=== PATIENT | female | born 1950 | race Caucasian/White ===

== ENCOUNTER → 2016-10-04 | Outpatient (CLI) | payer OTHER ==
--- NOTE | ~2016-10-04 | CT138 ---
[facility] A Service of [facility] RADIOLOGY TEXT RESULTS PATIENT: PAXTON RENTERIA LOCATION: [facility] : 52 UNIT #: [id number] AGE: [address]: Jada Rachel MD SEX: F ORDER DR: [id number] [facility]. [place], [place] [address] [id number] O MR#: [id number] Acc #: [id number] NAME: PAXTON RENTERIA : 1950 SEX: F STUDY DATE/TIME: 10/04/2016 10:22 UNIT: [facility] ROOM: STUDY DESCRIPTION: CT Lung screening initial Attending Physician: Jada Rachel M.D. Referring Physician: Jada Rachel M.D. Ordering Physician: Jada Rachel M.D. Primary Care Physician: Jada Rachel M.D. MEDICAL IMAGING REPORT This report is preliminary unless electronic signature is present EXAM CT chest without contrast, lung cancer screening, 10/04/2016 at 10:22 hours HISTORY 65-year-old current smoker with 40 pack-year history of cigarette smoking for baseline lung cancer screening exam. Patient has history of breast carcinoma in 2013 with chemo and radiation therapy. No current chest complaints. COMPARISON None TECHNIQUE Helical low dose CT images were obtained from the thoracic inlet through the adrenal glands. Sagittal and coronal reconstructions were performed. Total exam DLP 127 mGy-cm. This CT exam was performed with one or more of the following radiation dose reduction techniques: automatic exposure control, adjustment of mA and/or kV according to patient size, and iterative reconstruction. This exam was performed in a facility that meets the criteria for the LD CT screening program. Data regarding this exam was submitted to an approved registry. The order for this exam indicates that it came as a result of a lung cancer screening counseling and shared decision-making visit that included all of the elements required of such a visit. The radiologist interpreting this exam meets the CMS criteria for the LD CT lung cancer screening program. FINDINGS Images through the thoracic inlet demonstrate no thyroid mass or supraclavicular adenopathy. [facility] A Service of [facility] RADIOLOGY TEXT RESULTS PAT[facility]: PAXTON RENTERIA [id number] [birth year] UNIT #: [id number] AGE: [address]: Jada Rachel MD SEX: F ORDER DR: Images through the chest demonstrate coarse coronary calcifications. There is ectasia of the ascending aorta measuring 3.6 cm. Pulmonary arteries appear normal. Cardiac chambers and pericardium are normal. The esophagus is normal. There are benign calcified subcarinal and right infrahilar lymph nodes. There is no pathologic adenopathy. The lung window images demonstrate biapical pleural and parenchymal scarring. There is underlying emphysematous change with a few scattered blebs in the left lung and right lung. There is no suspicious nodule or mass. There is scarring in the right breast and clips in the right axilla from patient's previous right breast carcinoma. Limited views through the upper abdomen demonstrate normal adrenal glands. No liver lesion seen. There are degenerative endplate spurs in the thoracic spine. No bone lesions. IMPRESSION 1. Negative lung cancer screening baseline CT. There is underlying calcified granulomatous change and emphysematous change but no suspicious nodules. 2. Note is made of very coarse diffuse coronary calcifications which may be clinically significant. There is mild ectasia of the ascending aorta measuring 3.6 cm. Consider workup for coronary artery disease if not previously performed. 3. Lung-RADS 1S. Negative for carcinoma. Continued annual low-dose screening CT recommended in 12 months. Consider further evaluation of coarse coronary calcifications. Dictated by... Janell oCoper M.D. THIS IS AN ELECTRONICALLY VERIFIED REPORT Janell Cooper M.D. at 10/04/2016 2:32 PM Pati TD: 10/04/2016 13:22 JOB #: [id number] MEDICAL IMAGING REPORT Page 1 of 1 COPY
== END | disposition home or self-care (01) ==
LOC: CCAT 09:58
DX: F17.210 Nicotine dependence, cigarettes, uncomplicated (principal)
CPT/HCPCS: G0297